=== PATIENT | male | born 1945 | race Caucasian/White ===

== ENCOUNTER 2020-06-22 08:56 | Inpatient (IN) ==
[2020-06-22 09:50] LABS: Basophils # 0.1 10*3/uL (0.0-0.2); Basophils % 0.8 % (0.0-0.8); Hematocrit 22.1 VOL% (42.0-52.0); Hemoglobin 7.2 GM/DL (14.0-18.0); Immature Granulocytes % 5.9 %; Immature Granulocytes Absolute 0.42 #; Lymphocytes # 0.7 10*3/uL (1.4-4.0); Lymphocytes % 9.4 % (21.2-54.2); Mean Corpuscular HGB Conc 32.6 GM/DL (32-36); Mean Corpuscular Volume 92.9 FL (87-102); Mean Platelet Volume 11.3 FL (9.6-12.0); Monocytes % 11.5 % (1.7-12.7); NRBC # 0.05 10*3/uL; Neutrophils % 72.4 % (38.7-73.9); Platelet Count 162 T/CUMM (130-400); Red Blood Count 2.38 MC/CUMM (3.8-5.5); Red Cell Distribution Width 16.5 % (9.3-17.3); White Blood Count 7.1 T/CUMM (4-12)
[2020-06-22 10:16] LABS: Alanine Aminotransferase 25 U/L (16-61); Alkaline Phosphatase 41 U/L (45-117); Aspartate Amino Transferase 17 U/L (0-37); Blood Urea Nitrogen 15 MG/DL (7-18); Calcium 9.1 MG/DL (8.5-10.1); Estimated Glom Filtration Rate 109 ML/MIN; Glucose 324 MG/DL (74-106); Osmolality,Calculated 281.2 MOS/KG (273-304)
[2020-06-22 10:43] LABS: Bilirubin,Urine Negative (Negative); Blood, Urine Negative (Negative); Glucose,Urine (UA) >=500 mg/dL (Negative); Ketones,Urine Negative (Negative); Mucus,Urine Occasional /LPF (Occasional); Nitrite,Urine Negative (Negative); Protein,Urine Negative; RBC,Urine 1 /HPF (0-4); Urine Appearance CLEAR (Clear); Urine Color Yellow (Yellow); Urine Specific Gravity 1.021 (1.001-1.035); Urine Urobilinogen < 2.0 EU/DL (0.2-1.0); WBC,Urine 1 /HPF (0-6)
[2020-06-22] MEDS ORDERED: SODIUM CHLORIDE 0.9% 1,000 ML IV STA (10:58)
[2020-06-22] MEDS ORDERED: SODIUM CHLORIDE 0.9% 1,000 ML IV PRN (10:59)
[2020-06-22] MEDS ORDERED: ACETAMINOPHEN 325 MG TABLET PO PRN (11:31)
[2020-06-22] MEDS ORDERED: GLUCAGON 1 MG VIAL IM PRN (11:31)
[2020-06-22] MEDS ORDERED: DEXTROSE 50% 25 GM/50 ML SYRINGE IV PRN (11:31)
[2020-06-22] MEDS ORDERED: MORPHINE 4 MG/1 ML VIAL IV PRN (11:31)
[2020-06-22] MEDS ORDERED: ONDANSETRON 4 MG/2 ML VIAL IV PRN (11:31)
[2020-06-22 11:33] LABS: Band Neutrophils 3 % (0-10); Lymphocytes 11 % (20-55); Metamyelocytes 2 %; Myelocytes 1 %; Ovalocytes Few; Platelet Estimate Adequate; Polychromasia Slight; Segmented Neutrophils 75 % (50-85); Tear Drop Cells Few; Total Cells Counted 100
[2020-06-22] MEDS ORDERED: SODIUM CHLORIDE 0.9% 1,000 ML IV SCH (12:00)
[2020-06-22 12:18] LABS: % Iron Saturation 38.2 % (18-50); Ferritin 182.8 ng/ml (26-388)
[2020-06-22 13:57] LABS: Folate 13.3 NG/ML (5.4-24.0)
[2020-06-22 17:06] LABS: Hematocrit 25.4 VOL% (42.0-52.0)
[2020-06-22 17:07] LABS: Hemoglobin 8.5 GM/DL (14.0-18.0)
[2020-06-22] MEDS: INSULIN LISPRO 100 UNIT/ML SUBCUT SCH ×2 (17:34→21:01)
[2020-06-22] MEDS: INSULIN GLARGINE 100 UNIT/ML SUBCUT SCH (17:35)
[2020-06-22] MEDS: MAGNESIUM OXIDE 400 MG TABLET PO SCH (21:02)
[2020-06-22] MEDS: OMEGA 3 ACID ETHYL ESTERS 1 GM CAPSULE PO SCH (21:02)
[2020-06-22] MEDS: CALCIUM (CARBONATE) 600 MG TABLET PO SCH (21:02)
[2020-06-22] MEDS: POLYETHYLENE GLYCOL POWDER 17 GM PACK PO SCH (21:03)
[2020-06-22] MEDS: ROSUVASTATIN 20 MG TABLET PO SCH (21:03)
[2020-06-22] MEDS: MONTELUKAST 10 MG TABLET PO SCH (21:03)
[2020-06-22] MEDS: lisinopriL 2.5 MG TABLET PO SCH (21:03)
[2020-06-22] MEDS: PANTOPRAZOLE 40 MG TABLET PO SCH (21:03)
[2020-06-22] MEDS: AMOXICILLIN 500 MG CAPSULE PO SCH (21:03)
[2020-06-22] MEDS: DOCUSATE SODIUM 100 MG CAPSULE PO SCH (22:18)
[2020-06-23 06:07] LABS: Basophils % 0.6 % (0.0-0.8); Eosinophils % 0.1 % (0.00-10.9); Hematocrit 23.6 VOL% (42.0-52.0); Immature Granulocytes % 3.8 %; Immature Granulocytes Absolute 0.26 #; Lymphocytes # 0.4 10*3/uL (1.4-4.0); Lymphocytes % 5.6 % (21.2-54.2); Mean Corpuscular HGB Conc 33.9 GM/DL (32-36); Mean Corpuscular Volume 89.4 FL (87-102); Mean Platelet Volume 11.5 FL (9.6-12.0); Monocytes % 10.4 % (1.7-12.7); NRBC # 0.02 10*3/uL; Neutrophils % 79.5 % (38.7-73.9); Platelet Count 138 T/CUMM (130-400); Red Blood Count 2.64 MC/CUMM (3.8-5.5); Red Cell Distribution Width 17.2 % (9.3-17.3); White Blood Count 6.9 T/CUMM (4-12)
[2020-06-23 06:35] LABS: Albumin 2.8 G/DL (3.4-5.0); Bilirubin,Total 0.5 MG/DL (0.2-1.0); Calcium 9.1 MG/DL (8.5-10.1); Osmolality,Calculated 274.7 MOS/KG (273-304); Total Protein 5.5 G/DL (6.4-8.3)
[2020-06-23] MEDS: POLYETHYLENE GLYCOL POWDER 17 GM PACK PO SCH ×2 (08:33→21:58)
[2020-06-23] MEDS: CALCIUM (CARBONATE) 600 MG TABLET PO SCH ×2 (08:33→21:59)
[2020-06-23] MEDS: MAGNESIUM OXIDE 400 MG TABLET PO SCH ×2 (08:33→22:00)
[2020-06-23] MEDS: AMOXICILLIN 500 MG CAPSULE PO SCH ×2 (08:33→21:59)
[2020-06-23] MEDS: OMEGA 3 ACID ETHYL ESTERS 1 GM CAPSULE PO SCH ×2 (08:34→21:59)
[2020-06-23] MEDS: DOCUSATE SODIUM 100 MG CAPSULE PO SCH ×2 (08:34→22:00)
[2020-06-23] MEDS: FEXOFENADINE 180 MG TABLET PO SCH (08:34)
[2020-06-23] MEDS: MEGESTROL 40 MG TABLET PO SCH (08:34)
[2020-06-23] MEDS: POTASSIUM CHLORIDE 20 MEQ TABLET PO PRN ×4 (08:34→15:43)
[2020-06-23] MEDS: INSULIN LISPRO 100 UNIT/ML SUBCUT SCH ×4 (08:35→22:00)
[2020-06-23] MEDS: PANTOPRAZOLE 40 MG TABLET PO SCH ×2 (08:35→22:04)
[2020-06-23] MEDS: FLUTICASONE 50 MCG NASAL SPRAY 16 GM BOTTLE BOTH NARES SCH (08:40)
[2020-06-23] MEDS ORDERED: POLYETHYLENE GLYCOL POWDER 255 GM BOTTLE PO SCH (09:00)
[2020-06-23] MEDS ORDERED: POTASSIUM CHLORIDE 20 MEQ TABLET PO SCH (09:00)
[2020-06-23] MEDS ORDERED: BISACODYL 5 MG TABLET PO SCH (09:00)
[2020-06-23] MEDS: INSULIN GLARGINE 100 UNIT/ML SUBCUT SCH (17:44)
[2020-06-23] MEDS: POTASSIUM CHLORIDE 20 MEQ TABLET PO SCH (21:57)
[2020-06-23] MEDS: ROSUVASTATIN 20 MG TABLET PO SCH (21:58)
[2020-06-23] MEDS: lisinopriL 2.5 MG TABLET PO SCH (21:59)
[2020-06-23] MEDS: MONTELUKAST 10 MG TABLET PO SCH (22:00)
[2020-06-24 06:57] LABS: Basophils % 0.6 % (0.0-0.8); Eosinophils % 0.2 % (0.00-10.9); Hemoglobin 7.5 GM/DL (14.0-18.0); Immature Granulocytes % 4.2 %; Immature Granulocytes Absolute 0.27 #; Lymphocytes # 0.7 10*3/uL (1.4-4.0); Lymphocytes % 10.8 % (21.2-54.2); Mean Corpuscular HGB Conc 32.6 GM/DL (32-36); Mean Corpuscular Volume 92.4 FL (87-102); Mean Platelet Volume 11.6 FL (9.6-12.0); Monocytes % 12.5 % (1.7-12.7); NRBC # 0.02 10*3/uL; Neutrophils % 71.7 % (38.7-73.9); Platelet Count 160 T/CUMM (130-400); Red Blood Count 2.49 MC/CUMM (3.8-5.5); Red Cell Distribution Width 18.1 % (9.3-17.3); White Blood Count 6.4 T/CUMM (4-12)
[2020-06-24 06:59] LABS: Basophils # 0.1 10*3/uL (0.0-0.2); Basophils % 0.8 % (0.0-0.8); Eosinophils % 0.2 % (0.00-10.9); Hematocrit 23.2 VOL% (42.0-52.0); Hemoglobin 7.5 GM/DL (14.0-18.0); Immature Granulocytes % 3.1 %; Lymphocytes # 0.7 10*3/uL (1.4-4.0); Lymphocytes % 10.2 % (21.2-54.2); Mean Corpuscular HGB Conc 32.3 GM/DL (32-36); Mean Corpuscular Volume 95.1 FL (87-102); Mean Platelet Volume 11.3 FL (9.6-12.0); Monocytes % 12.4 % (1.7-12.7); NRBC # 0.03 10*3/uL; Neutrophils % 73.3 % (38.7-73.9); Platelet Count 154 T/CUMM (130-400); Red Blood Count 2.44 MC/CUMM (3.8-5.5); White Blood Count 6.4 T/CUMM (4-12)
[2020-06-24 07:14] LABS: Calcium 8.8 MG/DL (8.5-10.1); Osmolality,Calculated 285.3 MOS/KG (273-304)
[2020-06-24 07:17] LABS: Albumin 2.9 G/DL (3.4-5.0); Bilirubin,Total 0.5 MG/DL (0.2-1.0); Osmolality,Calculated 283.4 MOS/KG (273-304); Total Protein 5.7 G/DL (6.4-8.3)
[2020-06-24] MEDS ORDERED: SODIUM CHLORIDE 0.9% 1,000 ML IV PRN (07:28)
[2020-06-24 07:33] LABS: % Iron Saturation 13.3 % (18-50); Ferritin 123.3 ng/ml (26-388)
[2020-06-24] MEDS: INSULIN LISPRO 100 UNIT/ML SUBCUT SCH ×4 (07:50→20:42)
[2020-06-24 08:52] LABS: Folate 13.4 NG/ML (5.4-24.0); Vitamin B12 536 PG/ML (211-911)
[2020-06-24 08:55] LABS: Sedimentation Rate-Westergren 37 MM/HR (0-20)
[2020-06-24] MEDS ORDERED: propofoL 200 MG/20 ML VIAL IV ONE (09:00)
[2020-06-24] MEDS ORDERED: LIDOCAINE 2% 5 ML VIAL ONE (09:00)
[2020-06-24 09:13] LABS: Hemoglobin A1 (Alkaline) 97.1 % (96.5-98.5); Hemoglobin A2 (Alkaline) 2.9 % (1.5-3.5)
[2020-06-24] MEDS ORDERED: BISACODYL 5 MG TABLET PO ONE (12:00)
[2020-06-24] MEDS: FEXOFENADINE 180 MG TABLET PO SCH (13:15)
[2020-06-24] MEDS: MAGNESIUM OXIDE 400 MG TABLET PO SCH ×2 (13:15→20:38)
[2020-06-24] MEDS: DOCUSATE SODIUM 100 MG CAPSULE PO SCH ×2 (13:15→20:37)
[2020-06-24] MEDS: MEGESTROL 40 MG TABLET PO SCH (13:15)
[2020-06-24] MEDS: CALCIUM (CARBONATE) 600 MG TABLET PO SCH ×2 (13:15→20:37)
[2020-06-24] MEDS: AMOXICILLIN 500 MG CAPSULE PO SCH ×2 (13:15→20:37)
[2020-06-24] MEDS: FLUTICASONE 50 MCG NASAL SPRAY 16 GM BOTTLE BOTH NARES SCH (13:16)
[2020-06-24] MEDS: PANTOPRAZOLE 40 MG TABLET PO SCH ×2 (13:16→20:38)
[2020-06-24] MEDS: POTASSIUM CHLORIDE 20 MEQ TABLET PO SCH ×2 (13:16→20:37)
[2020-06-24] MEDS: POLYETHYLENE GLYCOL POWDER 17 GM PACK PO SCH ×2 (13:16→20:38)
[2020-06-24] MEDS: OMEGA 3 ACID ETHYL ESTERS 1 GM CAPSULE PO SCH ×2 (13:16→20:37)
[2020-06-24] MEDS ORDERED: FLUCONAZOLE 200 MG TABLET PO ONE (16:00)
[2020-06-24] MEDS: INSULIN GLARGINE 100 UNIT/ML SUBCUT SCH (17:40)
[2020-06-24] MEDS ORDERED: POLYETHYLENE GLYCOL POWDER 255 GM BOTTLE PO ONE (18:00)
[2020-06-24] MEDS: LACTATED RINGERS 1,000 ML IV SCH (18:14)
[2020-06-24] MEDS: ROSUVASTATIN 20 MG TABLET PO SCH (20:37)
[2020-06-24] MEDS: lisinopriL 2.5 MG TABLET PO SCH (20:38)
[2020-06-24] MEDS: MONTELUKAST 10 MG TABLET PO SCH (20:38)
[2020-06-24] MEDS ORDERED: MAGNESIUM CITRATE 300 ML BOTTLE PO PRN (20:55)
[2020-06-25 05:41] LABS: Basophils # 0.1 10*3/uL (0.0-0.2); Basophils % 0.7 % (0.0-0.8); Eosinophils % 0.1 % (0.00-10.9); Hematocrit 28.3 VOL% (42.0-52.0); Hemoglobin 9.3 GM/DL (14.0-18.0); Immature Granulocytes % 2.1 %; Immature Granulocytes Absolute 0.14 #; Lymphocytes # 0.7 10*3/uL (1.4-4.0); Lymphocytes % 9.6 % (21.2-54.2); Mean Corpuscular HGB Conc 32.9 GM/DL (32-36); Mean Corpuscular Volume 91.9 FL (87-102); Mean Platelet Volume 11.5 FL (9.6-12.0); Monocytes % 12.5 % (1.7-12.7); NRBC # 0.03 10*3/uL; Platelet Count 146 T/CUMM (130-400); Red Blood Count 3.08 MC/CUMM (3.8-5.5); White Blood Count 6.8 T/CUMM (4-12)
[2020-06-25 06:00] LABS: Calcium 9.2 MG/DL (8.5-10.1); Osmolality,Calculated 280.3 MOS/KG (273-304)
[2020-06-25 06:04] LABS: Albumin 2.8 G/DL (3.4-5.0); Calcium 9.2 MG/DL (8.5-10.1); Osmolality,Calculated 282.1 MOS/KG (273-304); Total Protein 5.7 G/DL (6.4-8.3)
[2020-06-25] MEDS: INSULIN LISPRO 100 UNIT/ML SUBCUT SCH ×2 (08:39→14:01)
[2020-06-25] MEDS ORDERED: FLUCONAZOLE 100 MG TABLET PO SCH (09:00)
[2020-06-25] MEDS ORDERED: LIDOCAINE 2% 5 ML VIAL ONE (09:00)
[2020-06-25] MEDS ORDERED: POTASSIUM CHLORIDE 20 MEQ TABLET PO SCH (09:00)
[2020-06-25] MEDS ORDERED: propofoL 200 MG/20 ML VIAL IV ONE (09:00)
[2020-06-25] MEDS ORDERED: ERGOCALCIFEROL 50,000 UNIT CAPSULE PO SCH (09:00)
[2020-06-25] MEDS: DOCUSATE SODIUM 100 MG CAPSULE PO SCH (11:22)
[2020-06-25] MEDS: POLYETHYLENE GLYCOL POWDER 17 GM PACK PO SCH (11:23)
[2020-06-25] MEDS: LACTATED RINGERS 1,000 ML IV SCH (11:45)
[2020-06-25 13:10] VITALS: BP 136/81
[2020-06-25] MEDS: MAGNESIUM OXIDE 400 MG TABLET PO SCH (13:54)
[2020-06-25] MEDS: CALCIUM (CARBONATE) 600 MG TABLET PO SCH (13:54)
[2020-06-25] MEDS: AMOXICILLIN 500 MG CAPSULE PO SCH (13:55)
[2020-06-25] MEDS: PANTOPRAZOLE 40 MG TABLET PO SCH (13:55)
[2020-06-25] MEDS: MEGESTROL 40 MG TABLET PO SCH (13:56)
[2020-06-25] MEDS: OMEGA 3 ACID ETHYL ESTERS 1 GM CAPSULE PO SCH (13:56)
[2020-06-25] MEDS: FEXOFENADINE 180 MG TABLET PO SCH (13:56)
[2020-06-25] MEDS: FLUTICASONE 50 MCG NASAL SPRAY 16 GM BOTTLE BOTH NARES SCH (13:57)
[2020-06-26 14:21] LABS: Soluble Transf Receptor (sTfR) 3.8 mg/L (1.8 - 4.6)
[2020-06-29] MEDS ORDERED: ERGOCALCIFEROL 50,000 UNIT CAPSULE PO SCH (09:00)
== END 2020-06-25 16:50 | disposition home or self-care (01) | DRG 378 ==
LOC: N.ED 08:56 → N.EDINP 11:31 → SUATTDRO 11:31 → N.4E 12:40
PROVIDERS: ADMIT Family Medicine; ATTEND Hospitalist

== ENCOUNTER 2020-07-24 11:17 | Observation (INO) ==
[2020-07-24] MEDS ORDERED: APIXABAN 5 MG TABLET PO STA (13:00)
[2020-07-24 13:32] LABS: Basophils % 1.2 % (0.0-0.8); Eosinophils % 0.3 % (0.00-10.9); Hematocrit 37.2 VOL% (42.0-52.0); Hemoglobin 12.2 GM/DL (14.0-18.0); Immature Granulocytes % 2.1 %; Immature Granulocytes Absolute 0.07 #; Lymphocytes # 0.7 10*3/uL (1.4-4.0); Lymphocytes % 20.5 % (21.2-54.2); Mean Corpuscular HGB Conc 32.8 GM/DL (32-36); Mean Corpuscular Volume 89.2 FL (87-102); Monocytes % 20.2 % (1.7-12.7); Neutrophils % 55.7 % (38.7-73.9); Platelet Count 189 T/CUMM (130-400); Red Blood Count 4.17 MC/CUMM (3.8-5.5); Red Cell Distribution Width 14.1 % (9.3-17.3); White Blood Count 3.4 T/CUMM (4-12)
[2020-07-24 13:55] LABS: Lymphocytes 29 % (20-55); Segmented Neutrophils 54 % (50-85); Total Cells Counted 100
[2020-07-24 13:56] LABS: Anisocytosis 1+; Elliptocytes Few; Platelet Estimate Adequate; Polychromasia Slight; Reactive Lymphocytes Few
[2020-07-24] MEDS ORDERED: ENOXAPARIN 100 MG/ML SYRINGE SUBCUT SCH (14:00)
[2020-07-24 14:02] LABS: Albumin 3.6 G/DL (3.4-5.0); Bilirubin,Total 0.4 MG/DL (0.2-1.0); Calcium 9.8 MG/DL (8.5-10.1); Osmolality,Calculated 277.4 MOS/KG (273-304); Total Protein 6.8 G/DL (6.4-8.3)
[2020-07-24] MEDS ORDERED: DEXTROSE 50% 25 GM/50 ML VIAL IV PRN ×2 (14:26)
[2020-07-24] MEDS ORDERED: GLUCAGON 1 MG VIAL IM PRN ×2 (14:26)
[2020-07-24] MEDS ORDERED: BISACODYL 5 MG TABLET PO PRN (14:37)
[2020-07-24] MEDS ORDERED: ZALEPLON 5 MG CAPSULE PO PRN (14:37)
[2020-07-24] MEDS ORDERED: ONDANSETRON 4 MG/2 ML VIAL IV PRN (14:37)
[2020-07-24] MEDS ORDERED: hydrALAZINE 20 MG/1 ML VIAL IV PRN (14:37)
[2020-07-24] MEDS ORDERED: diphenhydrAMINE CAP 25 MG CAPSULE PO PRN (14:37)
[2020-07-24] MEDS ORDERED: ALUMINUM/MAGNES/SIMETH MAX STR 30 ML UDCUP PO PRN (14:37)
[2020-07-24] MEDS ORDERED: ACETAMINOPHEN 325 MG TABLET PO PRN (14:37)
[2020-07-24] MEDS ORDERED: ALBUTEROL/IPRATROPIUM 3 ML NEB RESP TX PRN (14:37)
[2020-07-24] MEDS ORDERED: SIMETHICONE CHEW 125 MG TABLET PO PRN (14:37)
[2020-07-24] MEDS ORDERED: guaiFENesin/DM ER 600-30 MG TABLET PO PRN (14:37)
[2020-07-24] MEDS ORDERED: CALCIUM CARBONATE CHEW 500 MG TABLET PO PRN (14:37)
[2020-07-24] MEDS ORDERED: ALBUTEROL 2.5 MG/3 ML NEB RESP TX PRN (14:37)
[2020-07-24] MEDS ORDERED: LACTULOSE 20 GM/30 ML UDCUP PO PRN (14:37)
[2020-07-24] MEDS ORDERED: ENOXAPARIN 100 MG/ML SYRINGE SUBCUT ONE (14:42)
[2020-07-24] MEDS ORDERED: INSULIN GLARGINE 100 UNIT/ML SUBCUT SCH (18:00)
[2020-07-24] MEDS ORDERED: lisinopriL 2.5 MG TABLET PO SCH (21:00)
[2020-07-24] MEDS ORDERED: ROSUVASTATIN 20 MG TABLET PO SCH (21:00)
[2020-07-24] MEDS ORDERED: MONTELUKAST 10 MG TABLET PO SCH (21:00)
[2020-07-24] MEDS ORDERED: ASPIRIN EC 81 MG TABLET PO SCH (21:00)
[2020-07-24] MEDS: CALCIUM (CARBONATE) 600 MG TABLET PO SCH (21:20)
[2020-07-24] MEDS: MAGNESIUM OXIDE 400 MG TABLET PO SCH (21:21)
[2020-07-24] MEDS: DOCUSATE SODIUM 100 MG CAPSULE PO SCH (21:21)
[2020-07-24] MEDS: OMEGA 3 ACID ETHYL ESTERS 1 GM CAPSULE PO SCH (21:22)
[2020-07-24] MEDS: APIXABAN 5 MG TABLET PO SCH (21:23)
[2020-07-24] MEDS: metFORMIN 500 MG TABLET PO SCH (21:30)
[2020-07-25 05:28] LABS: Basophils % 0.9 % (0.0-0.8); Hematocrit 34.8 VOL% (42.0-52.0); Hemoglobin 11.3 GM/DL (14.0-18.0); Immature Granulocytes % 2.4 %; Immature Granulocytes Absolute 0.08 #; Lymphocytes # 0.8 10*3/uL (1.4-4.0); Lymphocytes % 22.9 % (21.2-54.2); Mean Corpuscular HGB Conc 32.5 GM/DL (32-36); Mean Corpuscular Volume 89.9 FL (87-102); Mean Platelet Volume 11.5 FL (9.6-12.0); Monocytes % 20.8 % (1.7-12.7); Platelet Count 155 T/CUMM (130-400); Red Blood Count 3.87 MC/CUMM (3.8-5.5); White Blood Count 3.3 T/CUMM (4-12)
[2020-07-25 05:49] LABS: Bilirubin,Total 0.6 MG/DL (0.2-1.0); Osmolality,Calculated 280.4 MOS/KG (273-304); Total Protein 6.1 G/DL (6.4-8.3)
[2020-07-25 06:00] LABS: Eosinophils 1 % (0-10); Lymphocytes 27 % (20-55); Platelet Estimate Adequate; Segmented Neutrophils 56 % (50-85); Total Cells Counted 100
[2020-07-25 06:01] LABS: Hypochromasia 1+; Microcytosis 1+; Ovalocytes Slight
[2020-07-25] MEDS ORDERED: GLIMEPIRIDE 2 MG TABLET PO SCH (08:00)
[2020-07-25] MEDS ORDERED: MEGESTROL 40 MG TABLET PO SCH (09:00)
[2020-07-25] MEDS ORDERED: POTASSIUM CHLORIDE 20 MEQ TABLET PO SCH (09:00)
[2020-07-25] MEDS ORDERED: PANTOPRAZOLE 40 MG TABLET PO SCH (09:00)
[2020-07-25] MEDS ORDERED: hydroCHLOROthiazide 25 MG TABLET PO SCH (09:00)
[2020-07-25] MEDS ORDERED: FERROUS SULFATE 325 MG TABLET PO SCH (09:00)
[2020-07-25] MEDS ORDERED: FEXOFENADINE 180 MG TABLET PO SCH (09:00)
[2020-07-25] MEDS ORDERED: FLUTICASONE 50 MCG NASAL SPRAY 16 GM BOTTLE BOTH NARES SCH (09:00)
[2020-07-25] MEDS: MAGNESIUM OXIDE 400 MG TABLET PO SCH (09:28)
[2020-07-25] MEDS: CALCIUM (CARBONATE) 600 MG TABLET PO SCH (09:28)
[2020-07-25] MEDS: OMEGA 3 ACID ETHYL ESTERS 1 GM CAPSULE PO SCH (09:28)
[2020-07-25] MEDS: APIXABAN 5 MG TABLET PO SCH (09:28)
[2020-07-25] MEDS: DOCUSATE SODIUM 100 MG CAPSULE PO SCH (09:30)
[2020-07-25] MEDS: metFORMIN 500 MG TABLET PO SCH (09:30)
[2020-07-25 12:35] VITALS: BP 142/72
== END 2020-07-25 16:02 | disposition home or self-care (01) ==
LOC: N.ED 11:17 → N.EDINP 11:17 → N.4E 18:04
PROVIDERS: ADMIT Internal Medicine; ATTEND Internal Medicine

== ENCOUNTER 2020-08-10 21:05 | Inpatient (IN) ==
[2020-08-10] MEDS ORDERED: ACETAMINOPHEN 500 MG TABLET PO STA (21:30)
[2020-08-10 21:38] LABS: Hematocrit 38.1 VOL% (42.0-52.0); Hemoglobin 12.7 GM/DL (14.0-18.0); Immature Granulocytes % 5.4 %; Immature Granulocytes Absolute 0.06 #; Lymphocytes # 0.2 10*3/uL (1.4-4.0); Lymphocytes % 19.6 % (21.2-54.2); Mean Corpuscular HGB Conc 33.3 GM/DL (32-36); Mean Corpuscular Volume 87.8 FL (87-102); Mean Platelet Volume 11.1 FL (9.6-12.0); NRBC # 0.04 10*3/uL; Platelet Count 183 T/CUMM (130-400); Red Blood Count 4.34 MC/CUMM (3.8-5.5); Red Cell Distribution Width 14.7 % (9.3-17.3); White Blood Count 1.1 T/CUMM (4-12)
[2020-08-10] MEDS ORDERED: ONDANSETRON 4 MG/2 ML VIAL IV ONE (21:44)
[2020-08-10] MEDS ORDERED: SODIUM CHLORIDE 0.9% 1,000 ML IV STA ×2 (21:44→22:45)
[2020-08-10] MEDS ORDERED: ONDANSETRON 4 MG/2 ML VIAL ONE (21:44)
[2020-08-10] MEDS ORDERED: ONDANSETRON 4 MG/2 ML VIAL IV STA (21:48)
[2020-08-10 21:52] LABS: Alanine Aminotransferase 21 U/L (16-61); Albumin 3.5 G/DL (3.4-5.0); Alkaline Phosphatase 61 U/L (45-117); Aspartate Amino Transferase 17 U/L (0-37); Blood Urea Nitrogen 13 MG/DL (7-18); Calcium 9.5 MG/DL (8.5-10.1); Estimated Glom Filtration Rate 76 ML/MIN; Glucose 342 MG/DL (74-106); Total Protein 7.3 G/DL (6.4-8.3)
[2020-08-10] MEDS ORDERED: MEROPENEM 1,000 MG in SODIUM CHLORIDE 0.9% 100 ML IV STA (21:55)
[2020-08-10] MEDS ORDERED: MEROPENEM 500 MG in SODIUM CHLORIDE 0.9% 100 ML IV STA (21:57)
[2020-08-10 22:03] LABS: Band Neutrophils 14 % (0-10); Lymphocytes 22 % (20-55); Metamyelocytes 1 %; Platelet Estimate Adequate; Polychromasia Few; Segmented Neutrophils 23 % (50-85); Total Cells Counted 100
[2020-08-10 22:04] LABS: Atypical Lymphocytes 1+
[2020-08-10 22:47] LABS: Bilirubin,Urine Negative (Negative); Blood, Urine Small mg/dL (Negative); Glucose,Urine (UA) >=500 mg/dL (Negative); Ketones,Urine Negative (Negative); Mucus,Urine Occasional /LPF (Occasional); Nitrite,Urine Negative (Negative); Protein,Urine Negative; RBC,Urine <1 /HPF (0-4); Urine Appearance CLEAR (Clear); Urine Color Straw (Yellow); Urine Specific Gravity 1.012 (1.001-1.035); Urine Urobilinogen < 2.0 EU/DL (0.2-1.0)
[2020-08-10] MEDS ORDERED: NICOTINE 21 MG/24 HR PATCH TRANSDERM PRN (23:01)
[2020-08-10] MEDS ORDERED: DEXTROSE 50% 25 GM/50 ML VIAL IV PRN ×2 (23:01)
[2020-08-10] MEDS ORDERED: guaiFENesin/DM ER 600-30 MG TABLET PO PRN (23:01)
[2020-08-10] MEDS ORDERED: MORPHINE 4 MG/1 ML VIAL IV PRN (23:01)
[2020-08-10] MEDS ORDERED: ZALEPLON 5 MG CAPSULE PO PRN (23:01)
[2020-08-10] MEDS ORDERED: hydrALAZINE 20 MG/1 ML VIAL IV PRN (23:01)
[2020-08-10] MEDS ORDERED: DOCUSATE SODIUM 100 MG CAPSULE PO PRN (23:01)
[2020-08-10] MEDS ORDERED: ONDANSETRON 4 MG/2 ML VIAL IV PRN (23:01)
[2020-08-10] MEDS ORDERED: GLUCAGON 1 MG VIAL IM PRN ×2 (23:01)
[2020-08-10] MEDS ORDERED: ACETAMINOPHEN 325 MG TABLET PO PRN (23:01)
[2020-08-10] MEDS ORDERED: diphenhydrAMINE CAP 25 MG CAPSULE PO PRN (23:01)
[2020-08-10] MEDS: ENOXAPARIN 100 MG/ML SYRINGE SUBCUT SCH (23:40)
[2020-08-11] MEDS: ALBUTEROL 2.5 MG/3 ML NEB RESP TX SCH ×4 (01:21→20:12)
[2020-08-11 02:32] LABS: Basophils % 0.4 % (0.0-0.8); Hematocrit 35.6 VOL% (42.0-52.0); Hemoglobin 11.7 GM/DL (14.0-18.0); Immature Granulocytes % 1.5 %; Immature Granulocytes Absolute 0.04 #; Lymphocytes # 0.3 10*3/uL (1.4-4.0); Lymphocytes % 9.6 % (21.2-54.2); Mean Corpuscular HGB Conc 32.9 GM/DL (32-36); Mean Corpuscular Volume 89.7 FL (87-102); Monocytes % 46.1 % (1.7-12.7); NRBC # 0.02 10*3/uL; Neutrophils % 42.4 % (38.7-73.9); Platelet Count 164 T/CUMM (130-400); Red Blood Count 3.97 MC/CUMM (3.8-5.5); Red Cell Distribution Width 14.9 % (9.3-17.3); White Blood Count 2.7 T/CUMM (4-12)
[2020-08-11] MEDS: VANCOMYCIN INJ 1,500 MG in SODIUM CHLORIDE 0.9% 500 ML IV SCH ×2 (02:40→17:03)
[2020-08-11] MEDS: SODIUM CHLORIDE 0.9% 1,000 ML IV SCH ×3 (02:41→19:30)
[2020-08-11 02:49] LABS: Calcium 8.9 MG/DL (8.5-10.1); Osmolality,Calculated 288.4 MOS/KG (273-304)
[2020-08-11 03:57] LABS: Band Neutrophils 11 % (0-10); Lymphocytes 20 % (20-55); Nucleated Red Blood Cells 1 (0-5); Segmented Neutrophils 32 % (50-85); Total Cells Counted 100
[2020-08-11 03:59] LABS: Platelet Estimate Normal
[2020-08-11 04:02] LABS: Microcytosis Slight; Polychromasia Few
[2020-08-11 04:03] LABS: Ovalocytes Few
[2020-08-11] MEDS ORDERED: SODIUM CHLORIDE 0.9% 1,000 ML IV ONE (06:03)
[2020-08-11] MEDS ORDERED: FERROUS SULFATE 325 MG TABLET PO SCH (09:00)
[2020-08-11] MEDS ORDERED: FEXOFENADINE 180 MG TABLET PO SCH (09:00)
[2020-08-11] MEDS: CALCIUM (CARBONATE) 600 MG TABLET PO SCH ×2 (09:58→21:38)
[2020-08-11] MEDS: OMEGA 3 ACID ETHYL ESTERS 1 GM CAPSULE PO SCH ×2 (09:59→21:39)
[2020-08-11] MEDS: MAGNESIUM OXIDE 400 MG TABLET PO SCH ×2 (09:59→21:39)
[2020-08-11] MEDS: MEGESTROL 40 MG TABLET PO SCH (09:59)
[2020-08-11] MEDS: PANTOPRAZOLE 40 MG TABLET PO SCH (09:59)
[2020-08-11] MEDS: POTASSIUM CHLORIDE 20 MEQ TABLET PO SCH (09:59)
[2020-08-11] MEDS: INSULIN LISPRO 100 UNIT/ML SUBCUT SCH ×4 (10:00→21:38)
[2020-08-11] MEDS: FLUTICASONE 50 MCG NASAL SPRAY 16 GM BOTTLE BOTH NARES SCH (10:00)
[2020-08-11] MEDS: MEROPENEM 500 MG in SODIUM CHLORIDE 0.9% 100 ML IV SCH ×3 (10:30→22:33)
[2020-08-11] MEDS: FILGRASTIM-SNDZ 300 MCG/0.5 ML SYRINGE SUBCUT SCH (12:10)
[2020-08-11] MEDS: ENOXAPARIN 100 MG/ML SYRINGE SUBCUT SCH ×2 (12:10→21:39)
[2020-08-11] MEDS: INSULIN GLARGINE 100 UNIT/ML SUBCUT SCH (17:55)
[2020-08-11] MEDS: POLYETHYLENE GLYCOL POWDER 17 GM PACK PO SCH (21:37)
[2020-08-11] MEDS: lisinopriL 2.5 MG TABLET PO SCH (21:39)
[2020-08-11] MEDS: ASPIRIN EC 81 MG TABLET PO SCH (21:39)
[2020-08-11] MEDS: FERROUS SULFATE 325 MG TABLET PO SCH (21:39)
[2020-08-11] MEDS: FEXOFENADINE 180 MG TABLET PO SCH (21:39)
[2020-08-12] MEDS: ALBUTEROL 2.5 MG/3 ML NEB RESP TX SCH ×4 (01:57→19:25)
[2020-08-12] MEDS: SODIUM CHLORIDE 0.9% 1,000 ML IV SCH (02:41)
[2020-08-12] MEDS: MEROPENEM 500 MG in SODIUM CHLORIDE 0.9% 100 ML IV SCH ×4 (02:48→21:02)
[2020-08-12] MEDS: VANCOMYCIN INJ 1,500 MG in SODIUM CHLORIDE 0.9% 500 ML IV SCH ×2 (03:44→16:54)
[2020-08-12 06:17] LABS: Basophils # 0.1 10*3/uL (0.0-0.2); Basophils % 0.7 % (0.0-0.8); Eosinophils % 0.3 % (0.00-10.9); Hematocrit 30.5 VOL% (42.0-52.0); Hemoglobin 9.9 GM/DL (14.0-18.0); Immature Granulocytes % 1.9 %; Immature Granulocytes Absolute 0.17 #; Lymphocytes # 0.6 10*3/uL (1.4-4.0); Lymphocytes % 6.5 % (21.2-54.2); Mean Corpuscular HGB Conc 32.5 GM/DL (32-36); Mean Corpuscular Volume 88.9 FL (87-102); Monocytes % 13.2 % (1.7-12.7); Neutrophils % 77.4 % (38.7-73.9); Platelet Count 142 T/CUMM (130-400); Red Blood Count 3.43 MC/CUMM (3.8-5.5); Red Cell Distribution Width 14.8 % (9.3-17.3); White Blood Count 9.1 T/CUMM (4-12)
[2020-08-12 06:40] LABS: Calcium 8.7 MG/DL (8.5-10.1); Osmolality,Calculated 276.5 MOS/KG (273-304)
[2020-08-12 06:48] LABS: Band Neutrophils 10 % (0-10); Eosinophils 1 % (0-10); Lymphocytes 8 % (20-55); Metamyelocytes 1 %; Segmented Neutrophils 71 % (50-85); Total Cells Counted 100
[2020-08-12 06:49] LABS: Hypochromasia 1+; Microcytosis 1+; Platelet Estimate Adequate
[2020-08-12] MEDS: MAGNESIUM OXIDE 400 MG TABLET PO SCH ×2 (08:23→20:22)
[2020-08-12] MEDS: CALCIUM (CARBONATE) 600 MG TABLET PO SCH ×2 (08:23→20:22)
[2020-08-12] MEDS: MEGESTROL 40 MG TABLET PO SCH (08:24)
[2020-08-12] MEDS: PANTOPRAZOLE 40 MG TABLET PO SCH (08:24)
[2020-08-12] MEDS: OMEGA 3 ACID ETHYL ESTERS 1 GM CAPSULE PO SCH ×2 (08:24→20:27)
[2020-08-12] MEDS: POTASSIUM CHLORIDE 20 MEQ TABLET PO SCH ×3 (08:24→20:22)
[2020-08-12] MEDS: FLUTICASONE 50 MCG NASAL SPRAY 16 GM BOTTLE BOTH NARES SCH (08:25)
[2020-08-12] MEDS: INSULIN LISPRO 100 UNIT/ML SUBCUT SCH ×4 (08:25→20:21)
[2020-08-12] MEDS: ENOXAPARIN 100 MG/ML SYRINGE SUBCUT SCH ×2 (08:25→20:21)
[2020-08-12] MEDS: POLYETHYLENE GLYCOL POWDER 17 GM PACK PO SCH ×2 (09:22→20:22)
[2020-08-12] MEDS: FILGRASTIM-SNDZ 300 MCG/0.5 ML SYRINGE SUBCUT SCH (09:23)
[2020-08-12] MEDS: FUROSEMIDE 40 MG/4 ML VIAL IV SCH (11:44)
[2020-08-12] MEDS ORDERED: POTASSIUM CHLORIDE 20 MEQ TABLET PO SCH (15:00)
[2020-08-12] MEDS: INSULIN GLARGINE 100 UNIT/ML SUBCUT SCH (18:07)
[2020-08-12] MEDS: ASPIRIN EC 81 MG TABLET PO SCH (20:22)
[2020-08-12] MEDS: FEXOFENADINE 180 MG TABLET PO SCH (20:22)
[2020-08-12] MEDS: lisinopriL 2.5 MG TABLET PO SCH (20:22)
[2020-08-12] MEDS: FERROUS SULFATE 325 MG TABLET PO SCH (20:23)
[2020-08-13] MEDS: ALBUTEROL 2.5 MG/3 ML NEB RESP TX SCH ×2 (00:13→07:29)
[2020-08-13] MEDS: MEROPENEM 500 MG in SODIUM CHLORIDE 0.9% 100 ML IV SCH ×2 (04:26→10:00)
[2020-08-13] MEDS: VANCOMYCIN INJ 1,500 MG in SODIUM CHLORIDE 0.9% 500 ML IV SCH (04:26)
[2020-08-13 05:57] LABS: Basophils # 0.1 10*3/uL (0.0-0.2); Basophils % 0.6 % (0.0-0.8); Eosinophils % 0.1 % (0.00-10.9); Hematocrit 30.3 VOL% (42.0-52.0); Hemoglobin 9.9 GM/DL (14.0-18.0); Immature Granulocytes % 1.9 %; Immature Granulocytes Absolute 0.29 #; Lymphocytes # 0.7 10*3/uL (1.4-4.0); Lymphocytes % 4.3 % (21.2-54.2); Mean Corpuscular HGB Conc 32.7 GM/DL (32-36); Mean Corpuscular Volume 89.6 FL (87-102); Mean Platelet Volume 11.5 FL (9.6-12.0); Monocytes % 8.5 % (1.7-12.7); Neutrophils % 84.6 % (38.7-73.9); Platelet Count 127 T/CUMM (130-400); Red Blood Count 3.38 MC/CUMM (3.8-5.5); White Blood Count 15.5 T/CUMM (4-12)
[2020-08-13 06:26] LABS: Band Neutrophils 3 % (0-10); Hypochromasia 1+; Lymphocytes 9 % (20-55); Microcytosis 1+; Ovalocytes Slight; Platelet Estimate Normal; Segmented Neutrophils 79 % (50-85); Total Cells Counted 100
[2020-08-13 06:28] LABS: Calcium 8.8 MG/DL (8.5-10.1); Osmolality,Calculated 281.3 MOS/KG (273-304)
[2020-08-13] MEDS: INSULIN LISPRO 100 UNIT/ML SUBCUT SCH ×2 (09:07→13:53)
[2020-08-13] MEDS: MEGESTROL 40 MG TABLET PO SCH (09:55)
[2020-08-13] MEDS: FLUTICASONE 50 MCG NASAL SPRAY 16 GM BOTTLE BOTH NARES SCH (09:55)
[2020-08-13] MEDS: PANTOPRAZOLE 40 MG TABLET PO SCH (09:55)
[2020-08-13] MEDS: OMEGA 3 ACID ETHYL ESTERS 1 GM CAPSULE PO SCH (09:55)
[2020-08-13] MEDS: POTASSIUM CHLORIDE 20 MEQ TABLET PO SCH (09:56)
[2020-08-13] MEDS: MAGNESIUM OXIDE 400 MG TABLET PO SCH (09:57)
[2020-08-13] MEDS: CALCIUM (CARBONATE) 600 MG TABLET PO SCH (09:57)
[2020-08-13] MEDS: ENOXAPARIN 100 MG/ML SYRINGE SUBCUT SCH (10:00)
[2020-08-13] MEDS: FUROSEMIDE 40 MG/4 ML VIAL IV SCH (10:04)
[2020-08-13] MEDS: POLYETHYLENE GLYCOL POWDER 17 GM PACK PO SCH (10:04)
[2020-08-13 11:43] VITALS: BP 138/69
== END 2020-08-13 13:50 | disposition home or self-care (01) | DRG 808 ==
LOC: N.ED 21:05 → SUATTDRO 23:01 → N.EDINP 23:01 → N.TELES 23:22 → N.4E 08-12 14:14
PROVIDERS: ADMIT Hospitalist; ATTEND Family Medicine

== ENCOUNTER 2022-03-03 09:58 | Inpatient (IN) ==
[2022-03-03] MEDS ORDERED: SODIUM CHLORIDE 0.9% 1,000 ML IV STA ×2 (11:34→15:50)
[2022-03-03] MEDS ORDERED: PIPERACILLIN/TAZOBACTAM 3,375 MG in SODIUM CHLORIDE 0.9% 100 ML IV STA (11:34)
[2022-03-03 12:18] LABS: Basophils # 0.1 10*3/uL (0.0-0.2); Basophils % 0.2 % (0.0-0.8); Eosinophils # 0.1 10*3/uL (0.0-0.87); Eosinophils % 0.2 % (0.00-10.9); Hematocrit 27.1 VOL% (42.0-52.0); Hemoglobin 8.8 GM/DL (14.0-18.0); Immature Granulocytes % 2.9 %; Immature Granulocytes Absolute 0.96 #; Lymphocytes # 0.6 10*3/uL (1.4-4.0); Lymphocytes % 1.8 % (21.2-54.2); Mean Corpuscular HGB Conc 32.5 GM/DL (32-36); Mean Corpuscular Volume 92.5 FL (87-102); Mean Platelet Volume 10.5 FL (9.6-12.0); Monocytes # 1.5 10*3/uL (0.11-0.8); Monocytes % 4.6 % (1.7-12.7); Neutrophils % 90.3 % (38.7-73.9); Platelet Count 286 T/CUMM (130-400); Red Blood Count 2.93 MC/CUMM (3.8-5.5); White Blood Count 33.1 T/CUMM (4-12)
[2022-03-03 12:39] LABS: Albumin 2.5 G/DL (3.4-5.0); Bilirubin,Total 0.6 MG/DL (0.20-1.00); Calcium 9.3 MG/DL (8.5-10.1); Osmolality,Calculated 270.9 MOS/KG (273-304); Potassium 5.5 MMOL/L (3.5-5.1); Total Protein 5.9 G/DL (6.4-8.2)
[2022-03-03 12:51] LABS: Band Neutrophils 2 % (0-10); Lymphocytes 1 % (20-55)
[2022-03-03 12:52] LABS: Ovalocytes Slight; Polychromasia Slight
[2022-03-03 12:53] LABS: Platelet Estimate Increased
[2022-03-03 12:54] LABS: Total Cells Counted 100
[2022-03-03 13:16] LABS: Bilirubin,Urine Small mg/dL (Negative); Blood, Urine Trace mg/dL (Negative); Glucose,Urine (UA) Negative (Negative); Ketones,Urine Small mg/dL (Negative); Nitrite,Urine Negative (Negative); Protein,Urine Negative (Negative); Urine Appearance Clear (Clear); Urine Color Yellow (Yellow); Urine Urobilinogen 0.2 eU/dL (<2.0)
[2022-03-03 13:19] LABS: Hyaline Casts,Urine 29 /LPF (0-3); RBC,Urine <1 /HPF (0-4)
[2022-03-03] MEDS ORDERED: GLUCAGON 1 MG VIAL IM PRN (15:43)
[2022-03-03] MEDS ORDERED: DEXTROSE 10% 250 ML BAG IV PRN (15:50)
[2022-03-03] MEDS: SODIUM CHLORIDE 0.9% 1,000 ML IV SCH (17:00)
[2022-03-03] MEDS: HYDROCORTISONE 100 MG VIAL IV SCH (17:00)
[2022-03-03] MEDS: PIPERACILLIN/TAZOBACTAM 3,375 MG in SODIUM CHLORIDE 0.9% 100 ML IV SCH (17:00)
[2022-03-03] MEDS ORDERED: ENOXAPARIN 30 MG/0.3 ML SYRINGE SUBCUT SCH (21:00)
[2022-03-04] MEDS: HYDROCORTISONE 100 MG VIAL IV SCH ×3 (00:14→21:31)
[2022-03-04] MEDS: PIPERACILLIN/TAZOBACTAM 3,375 MG in SODIUM CHLORIDE 0.9% 100 ML IV SCH (01:50)
[2022-03-04] MEDS: SODIUM CHLORIDE 0.9% 1,000 ML IV SCH ×2 (05:45→21:30)
[2022-03-04 05:48] LABS: Basophils # 0.1 10*3/uL (0.0-0.2); Basophils % 0.2 % (0.0-0.8); Hematocrit 28.8 VOL% (42.0-52.0); Immature Granulocytes % 2.8 %; Immature Granulocytes Absolute 0.95 #; Lymphocytes # 0.4 10*3/uL (1.4-4.0); Lymphocytes % 1.1 % (21.2-54.2); Mean Corpuscular HGB Conc 31.3 GM/DL (32-36); Mean Corpuscular Volume 94.4 FL (87-102); Mean Platelet Volume 10.5 FL (9.6-12.0); Monocytes # 0.6 10*3/uL (0.11-0.8); Monocytes % 1.7 % (1.7-12.7); Neutrophils % 94.2 % (38.7-73.9); Platelet Count 301 T/CUMM (130-400); Red Blood Count 3.05 MC/CUMM (3.8-5.5); Red Cell Distribution Width 16.1 % (9.3-17.3); White Blood Count 33.4 T/CUMM (4-12)
[2022-03-04 06:07] LABS: Albumin 2.5 G/DL (3.4-5.0); Bilirubin,Total 0.6 MG/DL (0.20-1.00); Calcium 9.1 MG/DL (8.5-10.1); Eosinophils 1 % (0-10); Lymphocytes 2 % (20-55); Osmolality,Calculated 270.9 MOS/KG (273-304); Platelet Estimate Adequate; Potassium 5.6 MMOL/L (3.5-5.1); Total Cells Counted 100
[2022-03-04] MEDS ORDERED: MEROPENEM 500 MG in SODIUM CHLORIDE 0.9% 100 ML IV SCH (08:30)
[2022-03-04] MEDS ORDERED: ONDANSETRON 4 MG TABLET PO PRN (09:01)
[2022-03-04] MEDS: APIXABAN 5 MG TABLET PO SCH ×2 (09:27→21:31)
[2022-03-04] MEDS: metroNIDAZOLE INJ 500 MG/100 ML PREMIX IV SCH ×2 (09:29→16:18)
[2022-03-04] MEDS ORDERED: CALCIUM (CARBONATE) 600 MG TABLET PO SCH (09:30)
[2022-03-04] MEDS: CEFEPIME 1,000 MG in SODIUM CHLORIDE 0.9% 100 ML IV SCH ×2 (09:32→17:46)
[2022-03-04] MEDS: CALCIUM (CARBONATE) 500 MG TABLET PO SCH (10:31)
[2022-03-04] MEDS: VANCOMYCIN INJ 2,000 MG in SODIUM CHLORIDE 0.9% 500 ML IV SCH (10:35)
[2022-03-04] MEDS ORDERED: DOCUSATE SODIUM 100 MG CAPSULE PO PRN (11:13)
[2022-03-04] MEDS ORDERED: LEUPROLIDE 22.5 MG IM SCH (11:13)
[2022-03-04] MEDS ORDERED: NAPROXEN SODIUM 275 MG TABLET PO PRN (11:22)
[2022-03-04] MEDS: INSULIN GLARGINE 100 UNIT/ML SUBCUT SCH ×2 (17:38→18:18)
[2022-03-04] MEDS: ACETAMINOPHEN 325 MG TABLET PO PRN (18:00)
[2022-03-04] MEDS: IMIPRAMINE 25 MG TABLET PO SCH (21:30)
[2022-03-04] MEDS: ROSUVASTATIN 20 MG TABLET PO SCH (21:30)
[2022-03-04] MEDS: OMEGA 3 ACID ETHYL ESTERS 1 GM CAPSULE PO SCH (21:30)
[2022-03-04] MEDS: MONTELUKAST 10 MG TABLET PO SCH (21:31)
[2022-03-04] MEDS: MAGNESIUM OXIDE 400 MG TABLET PO SCH (21:31)
[2022-03-05] MEDS: CEFEPIME 1,000 MG in SODIUM CHLORIDE 0.9% 100 ML IV SCH ×3 (01:55→17:59)
[2022-03-05] MEDS: metroNIDAZOLE INJ 500 MG/100 ML PREMIX IV SCH ×2 (01:55→09:53)
[2022-03-05 04:51] LABS: Basophils # 0.1 10*3/uL (0.0-0.2); Basophils % 0.2 % (0.0-0.8); Hematocrit 26.6 VOL% (42.0-52.0); Hemoglobin 8.5 GM/DL (14.0-18.0); Immature Granulocytes % 2.9 %; Immature Granulocytes Absolute 1.02 #; Lymphocytes # 0.3 10*3/uL (1.4-4.0); Lymphocytes % 0.9 % (21.2-54.2); Mean Corpuscular Volume 93.3 FL (87-102); Mean Platelet Volume 10.3 FL (9.6-12.0); Monocytes % 2.8 % (1.7-12.7); Neutrophils % 93.2 % (38.7-73.9); Platelet Count 323 T/CUMM (130-400); Red Blood Count 2.85 MC/CUMM (3.8-5.5); Red Cell Distribution Width 16.1 % (9.3-17.3); White Blood Count 35.3 T/CUMM (4-12)
[2022-03-05 05:05] LABS: Albumin 2.4 G/DL (3.4-5.0); Bilirubin,Total 0.4 MG/DL (0.20-1.00); Calcium 8.3 MG/DL (8.5-10.1); Osmolality,Calculated 283.4 MOS/KG (273-304); Potassium 5.5 MMOL/L (3.5-5.1); Total Protein 5.9 G/DL (6.4-8.2)
[2022-03-05 05:21] LABS: Platelet Estimate Adequate; Total Cells Counted 100
[2022-03-05] MEDS: SODIUM CHLORIDE 0.9% 1,000 ML IV SCH (09:47)
[2022-03-05] MEDS: FEXOFENADINE 180 MG TABLET PO SCH (09:55)
[2022-03-05] MEDS: APIXABAN 5 MG TABLET PO SCH ×2 (09:55→21:26)
[2022-03-05] MEDS: OMEPRAZOLE ODT 20 MG TABLET PO SCH (09:55)
[2022-03-05] MEDS: HYDROCORTISONE 100 MG VIAL IV SCH ×4 (09:55→21:34)
[2022-03-05] MEDS: CALCIUM (CARBONATE) 500 MG TABLET PO SCH (09:55)
[2022-03-05] MEDS: MAGNESIUM OXIDE 400 MG TABLET PO SCH ×2 (09:55→21:26)
[2022-03-05] MEDS: FERROUS SULFATE 325 MG TABLET PO SCH (09:56)
[2022-03-05] MEDS: MEGESTROL 40 MG TABLET PO SCH (09:56)
[2022-03-05] MEDS: FLUTICASONE 50 MCG NASAL SPRAY 16 GM BOTTLE BOTH NARES SCH (09:56)
[2022-03-05] MEDS: POLYETHYLENE GLYCOL POWDER 255 GM BOTTLE PO SCH (09:56)
[2022-03-05] MEDS: OMEGA 3 ACID ETHYL ESTERS 1 GM CAPSULE PO SCH ×2 (10:04→21:25)
[2022-03-05] MEDS ORDERED: [UNRECOGNIZED DRUG - OTHER] SUBCUT SCH (10:51)
[2022-03-05] MEDS ORDERED: EXENATIDE MICROSPHERES 2 MG/0.85 ML SUBCUT SCH (10:51)
[2022-03-05] MEDS: VANCOMYCIN INJ 2,000 MG in SODIUM CHLORIDE 0.9% 500 ML IV SCH (11:03)
[2022-03-05] MEDS: INSULIN REGULAR 100 UNIT/ML SUBCUT SCH ×3 (12:01→21:31)
[2022-03-05 15:45] LABS: Osmolality, Serum 316 mOsm/kg (275 - 295)
[2022-03-05 16:06] LABS: Osmolality, Urine 311 mOsm/kg (150 - 1150)
[2022-03-05] MEDS: INSULIN GLARGINE 100 UNIT/ML SUBCUT SCH (17:59)
[2022-03-05] MEDS: ROSUVASTATIN 20 MG TABLET PO SCH (21:26)
[2022-03-05] MEDS: MONTELUKAST 10 MG TABLET PO SCH (21:27)
[2022-03-05] MEDS: DESITIN 4OZ/NYSTATIN 15 GRAM MIXTURE PASTE TOP SCH ×2 (21:31→23:22)
[2022-03-05] MEDS: IMIPRAMINE 25 MG TABLET PO SCH (21:33)
[2022-03-06] MEDS: CEFEPIME 1,000 MG in SODIUM CHLORIDE 0.9% 100 ML IV SCH ×4 (02:15→17:25)
[2022-03-06 06:34] LABS: Basophils % 0.1 % (0.0-0.8); Hematocrit 25.5 VOL% (42.0-52.0); Hemoglobin 7.9 GM/DL (14.0-18.0); Immature Granulocytes % 1.7 %; Immature Granulocytes Absolute 0.45 #; Lymphocytes # 0.5 10*3/uL (1.4-4.0); Lymphocytes % 1.7 % (21.2-54.2); Mean Corpuscular Volume 94.8 FL (87-102); Mean Platelet Volume 10.1 FL (9.6-12.0); Monocytes # 1.3 10*3/uL (0.11-0.8); Monocytes % 4.6 % (1.7-12.7); Neutrophils % 91.9 % (38.7-73.9); Platelet Count 294 T/CUMM (130-400); Red Blood Count 2.69 MC/CUMM (3.8-5.5); Red Cell Distribution Width 16.2 % (9.3-17.3); White Blood Count 27.1 T/CUMM (4-12)
[2022-03-06 06:54] LABS: Albumin 2.2 G/DL (3.4-5.0); Bilirubin,Total 0.4 MG/DL (0.20-1.00); Calcium 8.2 MG/DL (8.5-10.1); Osmolality,Calculated 283.2 MOS/KG (273-304); Potassium 4.8 MMOL/L (3.5-5.1); Total Protein 5.4 G/DL (6.4-8.2)
[2022-03-06 07:13] LABS: Anisocytosis 1+; Band Neutrophils 8 % (0-10); Lymphocytes 2 % (20-55); Platelet Estimate Normal; Tear Drop Cells Few; Total Cells Counted 100
[2022-03-06 07:15] LABS: Burr Cells Few; Ovalocytes Few
[2022-03-06] MEDS: INSULIN REGULAR 100 UNIT/ML SUBCUT SCH ×4 (07:45→22:08)
[2022-03-06] MEDS: ERGOCALCIFEROL 50,000 UNIT CAPSULE PO SCH (08:59)
[2022-03-06] MEDS: CALCIUM (CARBONATE) 500 MG TABLET PO SCH (08:59)
[2022-03-06] MEDS: MAGNESIUM OXIDE 400 MG TABLET PO SCH ×2 (08:59→22:01)
[2022-03-06] MEDS: FEXOFENADINE 180 MG TABLET PO SCH (08:59)
[2022-03-06] MEDS: MEGESTROL 40 MG TABLET PO SCH (09:00)
[2022-03-06] MEDS: FERROUS SULFATE 325 MG TABLET PO SCH (09:00)
[2022-03-06] MEDS: FLUTICASONE 50 MCG NASAL SPRAY 16 GM BOTTLE BOTH NARES SCH (09:01)
[2022-03-06] MEDS: APIXABAN 5 MG TABLET PO SCH ×2 (09:01→22:01)
[2022-03-06] MEDS: OMEGA 3 ACID ETHYL ESTERS 1 GM CAPSULE PO SCH ×2 (09:01→22:01)
[2022-03-06] MEDS: POLYETHYLENE GLYCOL POWDER 255 GM BOTTLE PO SCH (09:02)
[2022-03-06] MEDS ORDERED: FUROSEMIDE 40 MG/4 ML VIAL IV ONE (11:00)
[2022-03-06] MEDS: DESITIN 4OZ/NYSTATIN 15 GRAM MIXTURE PASTE TOP SCH ×2 (11:30→22:05)
[2022-03-06] MEDS: OMEPRAZOLE ODT 20 MG TABLET PO SCH (11:30)
[2022-03-06] MEDS: INSULIN GLARGINE 100 UNIT/ML SUBCUT SCH (17:25)
[2022-03-06] MEDS: HYDROCORTISONE 100 MG VIAL IV SCH (18:23)
[2022-03-06] MEDS ORDERED: HYDROCORTISONE 10 MG TABLET PO SCH (21:00)
[2022-03-06] MEDS: MONTELUKAST 10 MG TABLET PO SCH (22:01)
[2022-03-06] MEDS: ROSUVASTATIN 20 MG TABLET PO SCH (22:01)
[2022-03-06] MEDS: HYDROCORTISONE 10 MG TABLET PO SCH (22:03)
[2022-03-06] MEDS: IMIPRAMINE 25 MG TABLET PO SCH (22:03)
[2022-03-06] MEDS: ACETAMINOPHEN 325 MG TABLET PO PRN (22:12)
[2022-03-07] MEDS: CEFEPIME 1,000 MG in SODIUM CHLORIDE 0.9% 100 ML IV SCH ×3 (01:00→17:42)
[2022-03-07 04:55] LABS: Basophils # 0.1 10*3/uL (0.0-0.2); Basophils % 0.2 % (0.0-0.8); Eosinophils # 0.1 10*3/uL (0.0-0.87); Eosinophils % 0.4 % (0.00-10.9); Hematocrit 27.2 VOL% (42.0-52.0); Hemoglobin 8.7 GM/DL (14.0-18.0); Immature Granulocytes % 2.2 %; Immature Granulocytes Absolute 0.56 #; Lymphocytes # 0.5 10*3/uL (1.4-4.0); Lymphocytes % 2.1 % (21.2-54.2); Mean Corpuscular Volume 93.5 FL (87-102); Mean Platelet Volume 10.4 FL (9.6-12.0); Monocytes # 1.7 10*3/uL (0.11-0.8); Monocytes % 6.7 % (1.7-12.7); Neutrophils % 88.4 % (38.7-73.9); Platelet Count 332 T/CUMM (130-400); Red Blood Count 2.91 MC/CUMM (3.8-5.5); Red Cell Distribution Width 16.2 % (9.3-17.3); White Blood Count 25.7 T/CUMM (4-12)
[2022-03-07 05:14] LABS: Calcium 8.6 MG/DL (8.5-10.1); Osmolality,Calculated 280.4 MOS/KG (273-304); Potassium 4.5 MMOL/L (3.5-5.1)
[2022-03-07 05:39] LABS: Lymphocytes 1 % (20-55); Platelet Estimate Adequate; Total Cells Counted 100
[2022-03-07] MEDS: ONDANSETRON 4 MG/2 ML VIAL IV PRN (07:25)
[2022-03-07] MEDS: INSULIN REGULAR 100 UNIT/ML SUBCUT SCH ×4 (08:24→21:11)
[2022-03-07] MEDS: FLUTICASONE 50 MCG NASAL SPRAY 16 GM BOTTLE BOTH NARES SCH (09:15)
[2022-03-07] MEDS: OMEPRAZOLE ODT 20 MG TABLET PO SCH (09:15)
[2022-03-07] MEDS: POLYETHYLENE GLYCOL POWDER 255 GM BOTTLE PO SCH (09:15)
[2022-03-07] MEDS: MEGESTROL 40 MG TABLET PO SCH (09:15)
[2022-03-07] MEDS: HYDROCORTISONE 10 MG TABLET PO SCH ×2 (09:16→21:12)
[2022-03-07] MEDS: OMEGA 3 ACID ETHYL ESTERS 1 GM CAPSULE PO SCH ×2 (09:16→21:12)
[2022-03-07] MEDS: CALCIUM (CARBONATE) 500 MG TABLET PO SCH (09:16)
[2022-03-07] MEDS: FERROUS SULFATE 325 MG TABLET PO SCH (09:16)
[2022-03-07] MEDS: FEXOFENADINE 180 MG TABLET PO SCH (09:16)
[2022-03-07] MEDS: MAGNESIUM OXIDE 400 MG TABLET PO SCH ×2 (09:17→21:12)
[2022-03-07] MEDS: APIXABAN 5 MG TABLET PO SCH ×2 (09:17→21:12)
[2022-03-07] MEDS: DESITIN 4OZ/NYSTATIN 15 GRAM MIXTURE PASTE TOP SCH ×2 (09:24→21:13)
[2022-03-07] MEDS ORDERED: ALBUMIN 25% 25 GM/100 ML VIAL IV ONE ×2 (10:00→16:30)
[2022-03-07] MEDS ORDERED: FUROSEMIDE 40 MG/4 ML VIAL IV ONE ×2 (10:00→16:30)
[2022-03-07] MEDS: INSULIN GLARGINE 100 UNIT/ML SUBCUT SCH (17:43)
[2022-03-07] MEDS: MONTELUKAST 10 MG TABLET PO SCH (21:12)
[2022-03-07] MEDS: ACETAMINOPHEN 325 MG TABLET PO PRN (21:12)
[2022-03-07] MEDS: IMIPRAMINE 25 MG TABLET PO SCH (21:12)
[2022-03-07] MEDS: ROSUVASTATIN 20 MG TABLET PO SCH (21:12)
[2022-03-08] MEDS: CEFEPIME 1,000 MG in SODIUM CHLORIDE 0.9% 100 ML IV SCH ×3 (01:59→16:48)
[2022-03-08 06:26] LABS: Basophils % 0.2 % (0.0-0.8); Eosinophils # 0.1 10*3/uL (0.0-0.87); Eosinophils % 0.5 % (0.00-10.9); Hematocrit 25.7 VOL% (42.0-52.0); Hemoglobin 8.1 GM/DL (14.0-18.0); Immature Granulocytes % 1.6 %; Lymphocytes # 0.5 10*3/uL (1.4-4.0); Lymphocytes % 2.1 % (21.2-54.2); Mean Corpuscular HGB Conc 31.5 GM/DL (32-36); Mean Corpuscular Volume 94.1 FL (87-102); Mean Platelet Volume 10.2 FL (9.6-12.0); Monocytes # 1.7 10*3/uL (0.11-0.8); Monocytes % 6.7 % (1.7-12.7); Neutrophils % 88.9 % (38.7-73.9); Platelet Count 296 T/CUMM (130-400); Red Blood Count 2.73 MC/CUMM (3.8-5.5); Red Cell Distribution Width 16.1 % (9.3-17.3); White Blood Count 25.6 T/CUMM (4-12)
[2022-03-08 06:34] LABS: Eosinophils 1 % (0-10); Lymphocytes 2 % (20-55); Platelet Estimate Adequate; Total Cells Counted 100
[2022-03-08 06:45] LABS: Calcium 8.8 MG/DL (8.5-10.1); Osmolality,Calculated 276.7 MOS/KG (273-304); Potassium 4.3 MMOL/L (3.5-5.1)
[2022-03-08] MEDS: MEGESTROL 40 MG TABLET PO SCH (09:47)
[2022-03-08] MEDS: FEXOFENADINE 180 MG TABLET PO SCH (09:47)
[2022-03-08] MEDS: OMEGA 3 ACID ETHYL ESTERS 1 GM CAPSULE PO SCH ×2 (09:47→20:30)
[2022-03-08] MEDS: HYDROCORTISONE 10 MG TABLET PO SCH ×2 (09:47→20:31)
[2022-03-08] MEDS: MAGNESIUM OXIDE 400 MG TABLET PO SCH ×2 (09:48→20:30)
[2022-03-08] MEDS: OMEPRAZOLE ODT 20 MG TABLET PO SCH (09:48)
[2022-03-08] MEDS: CALCIUM (CARBONATE) 500 MG TABLET PO SCH (09:48)
[2022-03-08] MEDS: APIXABAN 5 MG TABLET PO SCH (09:49)
[2022-03-08] MEDS: FLUTICASONE 50 MCG NASAL SPRAY 16 GM BOTTLE BOTH NARES SCH (09:49)
[2022-03-08] MEDS: FERROUS SULFATE 325 MG TABLET PO SCH (09:49)
[2022-03-08] MEDS: INSULIN GLARGINE 100 UNIT/ML SUBCUT SCH (09:50)
[2022-03-08] MEDS: POLYETHYLENE GLYCOL POWDER 255 GM BOTTLE PO SCH (09:53)
[2022-03-08] MEDS: DESITIN 4OZ/NYSTATIN 15 GRAM MIXTURE PASTE TOP SCH ×2 (09:53→20:35)
[2022-03-08] MEDS: INSULIN REGULAR 100 UNIT/ML SUBCUT SCH ×4 (10:27→20:33)
[2022-03-08] MEDS ORDERED: FUROSEMIDE 40 MG/4 ML VIAL IV ONE (11:30)
[2022-03-08] MEDS ORDERED: hydrOXYzine HCL 10 MG TABLET PO PRN (13:21)
[2022-03-08] MEDS: ROSUVASTATIN 20 MG TABLET PO SCH (20:30)
[2022-03-08] MEDS: MONTELUKAST 10 MG TABLET PO SCH (20:30)
[2022-03-08] MEDS: IMIPRAMINE 25 MG TABLET PO SCH (20:31)
[2022-03-08] MEDS: ACETAMINOPHEN 325 MG TABLET PO PRN (20:35)
[2022-03-09] MEDS: CEFEPIME 1,000 MG in SODIUM CHLORIDE 0.9% 100 ML IV SCH ×3 (01:55→17:07)
[2022-03-09 04:37] LABS: Basophils % 0.1 % (0.0-0.8); Eosinophils # 0.1 10*3/uL (0.0-0.87); Eosinophils % 0.3 % (0.00-10.9); Hematocrit 25.6 VOL% (42.0-52.0); Hemoglobin 8.1 GM/DL (14.0-18.0); Immature Granulocytes % 1.5 %; Immature Granulocytes Absolute 0.44 #; Lymphocytes # 0.5 10*3/uL (1.4-4.0); Lymphocytes % 1.8 % (21.2-54.2); Mean Corpuscular HGB Conc 31.6 GM/DL (32-36); Mean Corpuscular Volume 93.4 FL (87-102); Mean Platelet Volume 10.1 FL (9.6-12.0); Monocytes # 1.9 10*3/uL (0.11-0.8); Monocytes % 6.7 % (1.7-12.7); Neutrophils % 89.6 % (38.7-73.9); Platelet Count 292 T/CUMM (130-400); Red Blood Count 2.74 MC/CUMM (3.8-5.5); Red Cell Distribution Width 16.1 % (9.3-17.3); White Blood Count 28.4 T/CUMM (4-12)
[2022-03-09 04:47] LABS: Lymphocytes 2 % (20-55); Total Cells Counted 100
[2022-03-09 04:48] LABS: Platelet Estimate Adequate
[2022-03-09 04:56] LABS: Calcium 8.9 MG/DL (8.5-10.1); Osmolality,Calculated 275.5 MOS/KG (273-304); Potassium 4.7 MMOL/L (3.5-5.1)
[2022-03-09 08:33] LABS: INR 1.1; PT Patient Result 12.2 SECS (10.5-12.0)
[2022-03-09] MEDS: POLYETHYLENE GLYCOL POWDER 255 GM BOTTLE PO SCH (08:52)
[2022-03-09] MEDS: HYDROCORTISONE 10 MG TABLET PO SCH ×2 (08:52→20:46)
[2022-03-09] MEDS: ONDANSETRON 4 MG/2 ML VIAL IV PRN ×2 (08:52→21:05)
[2022-03-09] MEDS: FEXOFENADINE 180 MG TABLET PO SCH (08:52)
[2022-03-09] MEDS: OMEGA 3 ACID ETHYL ESTERS 1 GM CAPSULE PO SCH ×2 (08:52→20:46)
[2022-03-09] MEDS: INSULIN GLARGINE 100 UNIT/ML SUBCUT SCH (08:52)
[2022-03-09] MEDS: MEGESTROL 40 MG TABLET PO SCH (08:53)
[2022-03-09] MEDS: CALCIUM (CARBONATE) 500 MG TABLET PO SCH (08:53)
[2022-03-09] MEDS: MAGNESIUM OXIDE 400 MG TABLET PO SCH ×2 (08:53→20:46)
[2022-03-09] MEDS: FLUTICASONE 50 MCG NASAL SPRAY 16 GM BOTTLE BOTH NARES SCH (08:53)
[2022-03-09] MEDS: OMEPRAZOLE ODT 20 MG TABLET PO SCH (08:53)
[2022-03-09] MEDS: FERROUS SULFATE 325 MG TABLET PO SCH (08:53)
[2022-03-09] MEDS: DESITIN 4OZ/NYSTATIN 15 GRAM MIXTURE PASTE TOP SCH ×2 (08:54→20:46)
[2022-03-09] MEDS: INSULIN REGULAR 100 UNIT/ML SUBCUT SCH ×4 (09:18→20:45)
[2022-03-09] MEDS ORDERED: TUBERCULIN SKIN TEST 0.1 ML SYRINGE INTRADERM ONE (11:00)
[2022-03-09] MEDS ORDERED: FUROSEMIDE 40 MG/4 ML VIAL IV ONE (15:27)
[2022-03-09] MEDS ORDERED: ALBUMIN 25% 25 GM/100 ML VIAL IV ONE (15:28)
[2022-03-09] MEDS: ROSUVASTATIN 20 MG TABLET PO SCH (20:45)
[2022-03-09] MEDS: MONTELUKAST 10 MG TABLET PO SCH (20:46)
[2022-03-09] MEDS: IMIPRAMINE 25 MG TABLET PO SCH (20:46)
[2022-03-09] MEDS: ACETAMINOPHEN 325 MG TABLET PO PRN (21:05)
[2022-03-10] MEDS: CEFEPIME 1,000 MG in SODIUM CHLORIDE 0.9% 100 ML IV SCH ×2 (01:03→08:23)
[2022-03-10] MEDS: ONDANSETRON 4 MG/2 ML VIAL IV PRN (06:18)
[2022-03-10] MEDS: MEGESTROL 40 MG TABLET PO SCH (08:24)
[2022-03-10] MEDS: FERROUS SULFATE 325 MG TABLET PO SCH (08:24)
[2022-03-10] MEDS: CALCIUM (CARBONATE) 500 MG TABLET PO SCH (08:24)
[2022-03-10] MEDS: POLYETHYLENE GLYCOL POWDER 255 GM BOTTLE PO SCH (08:24)
[2022-03-10] MEDS: OMEGA 3 ACID ETHYL ESTERS 1 GM CAPSULE PO SCH ×2 (08:24→21:21)
[2022-03-10] MEDS: MAGNESIUM OXIDE 400 MG TABLET PO SCH ×2 (08:24→21:21)
[2022-03-10] MEDS: OMEPRAZOLE ODT 20 MG TABLET PO SCH (08:24)
[2022-03-10] MEDS: FEXOFENADINE 180 MG TABLET PO SCH (08:24)
[2022-03-10] MEDS: HYDROCORTISONE 10 MG TABLET PO SCH ×2 (08:24→21:20)
[2022-03-10] MEDS: INSULIN GLARGINE 100 UNIT/ML SUBCUT SCH (08:25)
[2022-03-10] MEDS: FLUTICASONE 50 MCG NASAL SPRAY 16 GM BOTTLE BOTH NARES SCH (08:25)
[2022-03-10] MEDS: INSULIN REGULAR 100 UNIT/ML SUBCUT SCH ×4 (08:26→21:21)
[2022-03-10] MEDS: DESITIN 4OZ/NYSTATIN 15 GRAM MIXTURE PASTE TOP SCH ×2 (08:26→21:27)
[2022-03-10] MEDS: APIXABAN 5 MG TABLET PO SCH ×2 (08:54→22:44)
[2022-03-10 09:00] LABS: INR 1.1; PT Patient Result 12.2 SECS (10.5-12.0)
[2022-03-10 09:06] LABS: Albumin 2.6 G/DL (3.4-5.0); Bilirubin,Total 0.4 MG/DL (0.20-1.00); Calcium 8.8 MG/DL (8.5-10.1); Osmolality,Calculated 271.9 MOS/KG (273-304); Potassium 4.9 MMOL/L (3.5-5.1); Total Protein 5.8 G/DL (6.4-8.2)
[2022-03-10 09:33] LABS: Basophils % 0.1 % (0.0-0.8); Eosinophils % 0.1 % (0.00-10.9); Hematocrit 26.5 VOL% (42.0-52.0); Hemoglobin 7.9 GM/DL (14.0-18.0); Immature Granulocytes % 1.2 %; Immature Granulocytes Absolute 0.33 #; Lymphocytes # 0.4 10*3/uL (1.4-4.0); Lymphocytes % 1.4 % (21.2-54.2); Mean Corpuscular HGB Conc 29.8 GM/DL (32-36); Mean Corpuscular Volume 98.5 FL (87-102); Mean Platelet Volume 10.4 FL (9.6-12.0); Monocytes # 1.5 10*3/uL (0.11-0.8); Monocytes % 5.4 % (1.7-12.7); Neutrophils % 91.8 % (38.7-73.9); Platelet Count 264 T/CUMM (130-400); Red Blood Count 2.69 MC/CUMM (3.8-5.5); Red Cell Distribution Width 16.4 % (9.3-17.3)
[2022-03-10 09:48] LABS: Hypochromia 1+; Lymphocytes 1 % (20-55); Ovalocytes Few; Total Cells Counted 100
[2022-03-10 09:49] LABS: Acanthocytes Few; Microcytosis 1+; Polychromasia Slight
[2022-03-10 09:50] LABS: Platelet Estimate Normal
[2022-03-10] MEDS ORDERED: FUROSEMIDE 40 MG/4 ML VIAL IV SCH (11:00)
[2022-03-10] MEDS: ACETAMINOPHEN 325 MG TABLET PO PRN ×2 (14:05→21:30)
[2022-03-10] MEDS: IMIPRAMINE 25 MG TABLET PO SCH (21:20)
[2022-03-10] MEDS: MONTELUKAST 10 MG TABLET PO SCH (21:21)
[2022-03-10] MEDS: ROSUVASTATIN 20 MG TABLET PO SCH (21:21)
[2022-03-11 04:29] LABS: Basophils % 0.1 % (0.0-0.8); Eosinophils # 0.1 10*3/uL (0.0-0.87); Eosinophils % 0.2 % (0.00-10.9); Hematocrit 23.2 VOL% (42.0-52.0); Hemoglobin 7.2 GM/DL (14.0-18.0); Lymphocytes # 0.4 10*3/uL (1.4-4.0); Lymphocytes % 1.8 % (21.2-54.2); Mean Corpuscular Volume 93.9 FL (87-102); Mean Platelet Volume 10.5 FL (9.6-12.0); Monocytes # 1.8 10*3/uL (0.11-0.8); Monocytes % 8.6 % (1.7-12.7); Neutrophils % 88.3 % (38.7-73.9); Platelet Count 247 T/CUMM (130-400); Red Blood Count 2.47 MC/CUMM (3.8-5.5); Red Cell Distribution Width 16.1 % (9.3-17.3); White Blood Count 20.8 T/CUMM (4-12)
[2022-03-11 04:51] LABS: Osmolality,Calculated 275.5 MOS/KG (273-304); Potassium 4.6 MMOL/L (3.5-5.1)
[2022-03-11 04:53] LABS: Anisocytosis 1+; Band Neutrophils 1 % (0-10); Lymphocytes 1 % (20-55); Microcytosis 1+; Ovalocytes Slight; Total Cells Counted 100
[2022-03-11 04:54] LABS: Platelet Estimate Normal
[2022-03-11] MEDS ORDERED: SODIUM CHLORIDE 0.9% 1,000 ML IV PRN (09:12)
[2022-03-11] MEDS: FLUTICASONE 50 MCG NASAL SPRAY 16 GM BOTTLE BOTH NARES SCH (09:37)
[2022-03-11] MEDS: MAGNESIUM OXIDE 400 MG TABLET PO SCH ×2 (09:38→21:42)
[2022-03-11] MEDS: FEXOFENADINE 180 MG TABLET PO SCH (09:38)
[2022-03-11] MEDS: OMEGA 3 ACID ETHYL ESTERS 1 GM CAPSULE PO SCH ×2 (09:38→21:41)
[2022-03-11] MEDS: CALCIUM (CARBONATE) 500 MG TABLET PO SCH (09:38)
[2022-03-11] MEDS: HYDROCORTISONE 10 MG TABLET PO SCH ×2 (09:39→21:42)
[2022-03-11] MEDS: APIXABAN 5 MG TABLET PO SCH ×2 (09:39→21:41)
[2022-03-11] MEDS: MEGESTROL 40 MG TABLET PO SCH (09:39)
[2022-03-11] MEDS: OMEPRAZOLE ODT 20 MG TABLET PO SCH (09:39)
[2022-03-11] MEDS: FERROUS SULFATE 325 MG TABLET PO SCH (09:39)
[2022-03-11] MEDS: DESITIN 4OZ/NYSTATIN 15 GRAM MIXTURE PASTE TOP SCH ×2 (09:40→21:43)
[2022-03-11] MEDS: POLYETHYLENE GLYCOL POWDER 255 GM BOTTLE PO SCH (09:44)
[2022-03-11] MEDS: INSULIN GLARGINE 100 UNIT/ML SUBCUT SCH (09:45)
[2022-03-11] MEDS: INSULIN REGULAR 100 UNIT/ML SUBCUT SCH ×4 (09:45→21:42)
[2022-03-11] MEDS: ONDANSETRON 4 MG/2 ML VIAL IV PRN (16:58)
[2022-03-11] MEDS: MONTELUKAST 10 MG TABLET PO SCH (21:42)
[2022-03-11] MEDS: ROSUVASTATIN 20 MG TABLET PO SCH (21:42)
[2022-03-11] MEDS: ACETAMINOPHEN 325 MG TABLET PO PRN (21:42)
[2022-03-11] MEDS: IMIPRAMINE 25 MG TABLET PO SCH (21:42)
[2022-03-11 23:29] LABS: Hematocrit 29.9 VOL% (42.0-52.0); Hemoglobin 9.6 GM/DL (14.0-18.0)
[2022-03-12] MEDS: ACETAMINOPHEN 325 MG TABLET PO PRN ×3 (01:59→18:03)
[2022-03-12] MEDS: ALPRAZolam 0.5 MG TABLET PO PRN ×2 (01:59→09:35)
[2022-03-12 04:56] LABS: Basophils % 0.2 % (0.0-0.8); Eosinophils # 0.1 10*3/uL (0.0-0.87); Eosinophils % 0.3 % (0.00-10.9); Hemoglobin 9.6 GM/DL (14.0-18.0); Immature Granulocytes % 1.2 %; Lymphocytes # 0.4 10*3/uL (1.4-4.0); Lymphocytes % 1.6 % (21.2-54.2); Mean Corpuscular Volume 92.9 FL (87-102); Mean Platelet Volume 10.1 FL (9.6-12.0); Monocytes % 8.3 % (1.7-12.7); Neutrophils % 88.4 % (38.7-73.9); Platelet Count 227 T/CUMM (130-400); Red Blood Count 3.23 MC/CUMM (3.8-5.5); White Blood Count 24.5 T/CUMM (4-12)
[2022-03-12 05:17] LABS: Calcium 8.8 MG/DL (8.5-10.1); Lymphocytes 2 % (20-55); Osmolality,Calculated 275.8 MOS/KG (273-304); Platelet Estimate Adequate; Potassium 5.1 MMOL/L (3.5-5.1); Total Cells Counted 100
[2022-03-12] MEDS: HYDROCORTISONE 10 MG TABLET PO SCH ×2 (09:36→22:17)
[2022-03-12] MEDS: CALCIUM (CARBONATE) 500 MG TABLET PO SCH (09:37)
[2022-03-12] MEDS: FEXOFENADINE 180 MG TABLET PO SCH (09:37)
[2022-03-12] MEDS: OMEPRAZOLE ODT 20 MG TABLET PO SCH (09:37)
[2022-03-12] MEDS: APIXABAN 5 MG TABLET PO SCH ×2 (09:38→22:18)
[2022-03-12] MEDS: INSULIN GLARGINE 100 UNIT/ML SUBCUT SCH (09:38)
[2022-03-12] MEDS: MAGNESIUM OXIDE 400 MG TABLET PO SCH ×2 (09:38→22:18)
[2022-03-12] MEDS: FERROUS SULFATE 325 MG TABLET PO SCH (09:38)
[2022-03-12] MEDS: OMEGA 3 ACID ETHYL ESTERS 1 GM CAPSULE PO SCH ×2 (09:38→22:18)
[2022-03-12] MEDS: MEGESTROL 40 MG TABLET PO SCH (09:39)
[2022-03-12] MEDS: INSULIN REGULAR 100 UNIT/ML SUBCUT SCH ×4 (09:39→22:17)
[2022-03-12] MEDS: DESITIN 4OZ/NYSTATIN 15 GRAM MIXTURE PASTE TOP SCH ×2 (09:41→22:20)
[2022-03-12] MEDS: FLUTICASONE 50 MCG NASAL SPRAY 16 GM BOTTLE BOTH NARES SCH (09:41)
[2022-03-12] MEDS: MENTHOL/ZINC OXIDE OINT 71 GM JAR TOP SCH ×2 (16:43→22:20)
[2022-03-12] MEDS: ONDANSETRON 4 MG/2 ML VIAL IV PRN (17:30)
[2022-03-12] MEDS: IMIPRAMINE 25 MG TABLET PO SCH (22:18)
[2022-03-12] MEDS: MONTELUKAST 10 MG TABLET PO SCH (22:18)
[2022-03-12] MEDS: ROSUVASTATIN 20 MG TABLET PO SCH (22:19)
[2022-03-13] MEDS: ACETAMINOPHEN 325 MG TABLET PO PRN (02:13)
[2022-03-13] MEDS: ONDANSETRON 4 MG/2 ML VIAL IV PRN ×2 (04:57→12:39)
[2022-03-13 05:54] LABS: Basophils % 0.2 % (0.0-0.8); Eosinophils # 0.1 10*3/uL (0.0-0.87); Eosinophils % 0.2 % (0.00-10.9); Hematocrit 31.7 VOL% (42.0-52.0); Hemoglobin 10.2 GM/DL (14.0-18.0); Immature Granulocytes % 1.2 %; Immature Granulocytes Absolute 0.31 #; Lymphocytes # 0.3 10*3/uL (1.4-4.0); Lymphocytes % 1.2 % (21.2-54.2); Mean Corpuscular HGB Conc 32.2 GM/DL (32-36); Mean Corpuscular Volume 92.4 FL (87-102); Mean Platelet Volume 10.8 FL (9.6-12.0); Monocytes # 1.8 10*3/uL (0.11-0.8); Monocytes % 6.9 % (1.7-12.7); Neutrophils % 90.3 % (38.7-73.9); Platelet Count 270 T/CUMM (130-400); Red Blood Count 3.43 MC/CUMM (3.8-5.5); White Blood Count 26.1 T/CUMM (4-12)
[2022-03-13 06:12] LABS: Calcium 9.7 MG/DL (8.5-10.1); Osmolality,Calculated 275.2 MOS/KG (273-304)
[2022-03-13 07:09] LABS: Band Neutrophils 1 % (0-10); Lymphocytes 2 % (20-55); Total Cells Counted 100
[2022-03-13 07:10] LABS: Hypochromia Slight; Microcytosis 1+; Ovalocytes Slight; Platelet Estimate Normal
[2022-03-13] MEDS ORDERED: SODIUM CHLORIDE 0.9% 1,000 ML IV SCH (08:30)
[2022-03-13] MEDS: FEXOFENADINE 180 MG TABLET PO SCH (09:19)
[2022-03-13] MEDS: HYDROCORTISONE 10 MG TABLET PO SCH (09:20)
[2022-03-13] MEDS: CALCIUM (CARBONATE) 500 MG TABLET PO SCH (09:20)
[2022-03-13] MEDS: OMEGA 3 ACID ETHYL ESTERS 1 GM CAPSULE PO SCH (09:22)
[2022-03-13] MEDS: MEGESTROL 40 MG TABLET PO SCH (09:22)
[2022-03-13] MEDS: APIXABAN 5 MG TABLET PO SCH (09:23)
[2022-03-13] MEDS: ERGOCALCIFEROL 50,000 UNIT CAPSULE PO SCH (09:23)
[2022-03-13] MEDS: OMEPRAZOLE ODT 20 MG TABLET PO SCH (09:23)
[2022-03-13] MEDS: MAGNESIUM OXIDE 400 MG TABLET PO SCH (09:23)
[2022-03-13] MEDS: FERROUS SULFATE 325 MG TABLET PO SCH (09:24)
[2022-03-13] MEDS: INSULIN REGULAR 100 UNIT/ML SUBCUT SCH ×2 (09:24→12:37)
[2022-03-13] MEDS: INSULIN GLARGINE 100 UNIT/ML SUBCUT SCH (09:25)
[2022-03-13] MEDS: FLUTICASONE 50 MCG NASAL SPRAY 16 GM BOTTLE BOTH NARES SCH (09:25)
[2022-03-13] MEDS: MENTHOL/ZINC OXIDE OINT 71 GM JAR TOP SCH (09:26)
[2022-03-13] MEDS: POLYETHYLENE GLYCOL POWDER 255 GM BOTTLE PO SCH (09:26)
[2022-03-13] MEDS: DESITIN 4OZ/NYSTATIN 15 GRAM MIXTURE PASTE TOP SCH (09:26)
[2022-03-13 11:50] VITALS: BP 99/63
== END 2022-03-13 14:00 | disposition hospice, home (50) | DRG 844 ==
LOC: N.ED 09:58 → N.EDINP 15:43 → SUATTDRO 15:43 → N.ICU 16:35 → N.5E 03-05 15:17
PROVIDERS: ADMIT Internal Medicine Geriatric Medicine; ATTEND Family Medicine